=== PATIENT | male | born 1985 | race Caucasian/White ===

== ENCOUNTER 2018-03-14 20:19 | Emergency (ER) | payer BC ==
[~2018-03-14] VITALS: Ht 177.8 cm; Wt 47.9 kg
[2018-03-14 20:22] VITALS: BP 124/75
[2018-03-15] MEDS ORDERED: ATIVAN1 MG PO (04:31)
[2018-03-15] MEDS ORDERED: TRAZODONE HCL50 MG PO (04:31)
[2018-03-15] MEDS ORDERED: CLONIDINE HCL0.1 MG PO (04:31)
== END 2018-03-14 22:19 | disposition left against medical advice (07) ==
LOC: EME 20:19
DX: Z76.0 Encounter for issue of repeat prescription (principal); Z53.21 Procedure and treatment not carried out due to patient leaving prior to being seen by health care provider

== ENCOUNTER 2018-03-15 01:30 | Emergency (ER) | payer SELFPAY ==
[~2018-03-15] VITALS: Ht 177.8 cm; Wt 49.4 kg
[2018-03-15] MEDS ORDERED: CLONIDINE HCL0.1 MG PO (04:31)
[2018-03-15] MEDS ORDERED: ATIVAN1 MG PO (04:31)
[2018-03-15] MEDS ORDERED: TRAZODONE HCL50 MG PO (04:31)
[2018-03-15 05:05] VITALS: BP 111/80
== END 2018-03-15 05:06 | disposition home or self-care (01) ==
LOC: EME 01:30
DX: Z76.0 Encounter for issue of repeat prescription (principal); F11.23 Opioid dependence with withdrawal; F17.200 Nicotine dependence, unspecified, uncomplicated
CPT/HCPCS: 99281; 99283